=== PATIENT | male | born 1945 ===

== ENCOUNTER → 2018-05-25 | Outpatient (CLI) | payer MEDICARE, OTHER | END | disposition home or self-care (01) | LOC: LAB 18:15 → LAB SHORT 18:15 | DX: L08.9 Local infection of the skin and subcutaneous tissue, unspecified (principal); C43.59 Malignant melanoma of other part of trunk; L02.02 Furuncle of face; L02.212 Cutaneous abscess of back [any part, except buttock and flank] | CPT/HCPCS: 87070; 87205 ==

== ENCOUNTER → 2018-07-06 | Outpatient (CLI) | payer MEDICARE, OTHER | END | disposition home or self-care (01) | LOC: LAB SHORT 18:14 → LAB 18:14 | DX: C43.59 Malignant melanoma of other part of trunk (principal); L08.9 Local infection of the skin and subcutaneous tissue, unspecified; L02.212 Cutaneous abscess of back [any part, except buttock and flank]; L82.1 Other seborrheic keratosis | CPT/HCPCS: 87070; 87205 ==